=== PATIENT | male | born 1985 | race Caucasian/White ===

== ENCOUNTER 2019-10-03 02:53 | Emergency (ER) | payer OTHER ==
[2019-10-03 04:02] LABS: Basophils # (A) 0.1 k/uL (0-0.2); Basophils % (A) 0 %; Eosinophils # (A) 0.4 k/uL (0-0.7); Eosinophils % (A) 4 %; HCT 43.5 % (39.0-53.0); HGB 15.3 gm/dL (13.0-17.5); Lymphocytes # (A) 1.6 k/uL (1.0-4.8); Lymphocytes % (A) 15 %; MCH 32.7 pg (25.0-35.0); MCHC 35.2 g/dL (31.0-37.0); Mean Platelet Volume 7.2; Monocytes # (A) 0.5 k/uL (0-1.0); Monocytes % (A) 5 %; Neutrophils % (A) 76 %; Platelet Count 187 k/uL (150-450); RBC 4.68 m/uL (4.30-5.90); RDW 13.1 % (11.5-15.5); WBC 10.5 k/uL (3.8-10.6)
[2019-10-03 04:05] LABS: ALT 78 U/L (4-49); AST 67 U/L (17-59); African American GFR (CKD) >90 (>60 ml/min/1.73 sqM); Albumin 4.4 g/dL (3.5-5.0); Alkaline Phosphatase 73 U/L (38-126); Anion Gap 10 mmol/L; Blood Urea Nitrogen 16 mg/dL (9-20); Calcium 9.5 mg/dL (8.4-10.2); Carbon Dioxide 23 mmol/L (22-30); Chloride 102 mmol/L (98-107); Creatine Kinase 136 U/L (55-170); Glucose 106 mg/dL (74-99); Magnesium 1.8 mg/dL (1.6-2.3); Non-African American GFR(CKD) >90 (>60 ml/min/1.73 sqM); Potassium 4.1 mmol/L (3.5-5.1); Sodium 135 mmol/L (137-145); Total Bilirubin 0.3 mg/dL (0.2-1.3); Total Protein 7.3 g/dL (6.3-8.2)
--- NOTE | 2019-10-03 04:14 | ED ---
Extremity Problem HPI - General Chief complaint: Extremity Problem,Nontraumatic Stated complaint: RT foot pain Time Seen by Provider: 10/03/19 03:25 Source: patient Mode of arrival: ambulatory Limitations: no limitations - History of Present Illness Initial comments: Shahzad is a previously healthy 33-year-old male who presents to the ER today for evaluation of bilateral foot pain, today the right worse than the left. Patient reports he's had pain intermittently for the past 2 weeks but has been progressively worsening. He reports at times he has pain in both feet and can't walk so he has to crawl. He states that tonight he is only having pain in his right foot. He does report that his shoes he is wearing are new. He does report that 2 days ago he was feeling well enough to multiple on and walk around. He has not taken anything for the pain he hasn't tried heat ice elevation Tylenol or Motrin. He denies any injury. Denies any rashes or color change. His any calf or ankle pain. Reports the pain is on the top of the arch of his foot radiating around into the arch of his foot. Pain is not worse in the morning and better with walking. - Related Data Allergies Allergy/AdvReac Type Severity Reaction Status Date / Time No Known Allergies Allergy Verified 10/03/19 03:02 Review of Systems ROS Statement: Those systems with pertinent positive or pertinent negative responses have been documented in the HPI. ROS Other: All systems not noted in ROS Statement are negative. Past Medical History Past Medical History: No Reported History History of Any Multi-Drug Resistant Organisms: None Reported Past Surgical History: Orthopedic Surgery Additional Past Surgical History / Comment(s): left knee Past Psychological History: Bipolar Smoking Status: Current every day smoker Past Alcohol Use History: Abuse, Daily, Heavy Past Drug Use History: None Reported General Exam - General Exam Comments Initial Comments: Physical Exam GENERAL: Patient is well-developed and well-nourished. Patient is nontoxic and well-hydrated and is in no distress. HENT: Normocephalic, Atraumatic. EYES: PERRL, EOMI PULMONARY: Unlabored respirations. CARDIOVASCULAR: RRR Warm and well perfused extremities ABDOMEN: Non-distended SKIN: No rashes or bruising : Deferred NEUROLOGIC: Alert and oriented Normal speech MUSCULOSKELETAL: Moving all extremities with no apparent injury Full range of motion of the toes and ankle. Some pain with bearing weight on the foot PSYCHIATRIC: No SI/HI Limitations: no limitations Course Vital Signs 10/03/19 02:58 Temperature 98.3 F Pulse Rate 60 Respiratory 18 Rate Blood Pressure 164/96 O2 Sat by Pulse 99 Oximetry Medical Decision Making - Medical Decision Making The patient was seen and evaluated history was obtained from patient history and physical exam are relatively unremarkable and very high suspicion that the pain in his foot is due to poor arch support is new shoes. X-rays were obtained at the patient's request and revealed no acute findings X-ray results were discussed the patient expresses relief he was treated with Toradol in the hospital. Supportive care was advised he was advised to change his shoes and follow up with a resolute professional if he had persistent pain - Lab Data Result diagrams: 10/03/19 03:41 10/03/19 03:41 Lab Results 10/03/19 10/03/19 Range/Units 03:41 03:41 WBC 10.5 (3.8-10.6) k/uL RBC 4.68 (4.30-5.90) m/uL Hgb 15.3 (13.0-17.5) gm/dL Hct 43.5 (39.0-53.0) % MCV 93.0 (80.0-100.0) fL MCH 32.7 (25.0-35.0) pg MCHC 35.2 (31.0-37.0) g/dL RDW 13.1 (11.5-15.5) % Plt Count 187 (150-450) k/uL Neutrophils % 76 % Lymphocytes % 15 % Monocytes % 5 % Eosinophils % 4 % Basophils % 0 % Neutrophils # 8.0 H (1.3-7.7) k/uL Lymphocytes # 1.6 (1.0-4.8) k/uL Monocytes # 0.5 (0-1.0) k/uL Eosinophils # 0.4 (0-0.7) k/uL Basophils # 0.1 (0-0.2) k/uL Sodium 135 L (137-145) mmol/L Potassium 4.1 (3.5-5.1) mmol/L Chloride 102 (98-107) mmol/L Carbon Dioxide 23 (22-30) mmol/L Anion Gap 10 mmol/L BUN 16 (9-20) mg/dL Creatinine 0.77 (0.66-1.25) mg/dL Est GFR (CKD-EPI)AfAm >90 (>60 ml/min/1.73 sqM) Est GFR (CKD-EPI)NonAf >90 (>60 ml/min/1.73 sqM) Glucose 106 H (74-99) mg/dL Calcium 9.5 (8.4-10.2) mg/dL Magnesium 1.8 (1.6-2.3) mg/dL Total Bilirubin 0.3 (0.2-1.3) mg/dL AST 67 H (17-59) U/L ALT 78 H (4-49) U/L Alkaline Phosphatase 73 (38-126) U/L Creatine Kinase 136 (55-170) U/L Total Protein 7.3 (6.3-8.2) g/dL Albumin 4.4 (3.5-5.0) g/dL Disposition Clinical Impression: Foot pain, bilateral Disposition: HOME SELF-CARE Condition: Stable Instructions (If sedation given, give patient instructions): Metatarsalgia (DC) Additional Instructions: I recommend shoes with more arch support, stop wearing the shoes that he been wearing for the past 2 weeks as I think those are contributing to her foot pain if he had persistent pain follow-up with a resolute professional or orthopedic surgeon Is patient prescribed a controlled substance at d/c from ED?: No Referrals: Nonstaff,Physician [Primary Care Provider] - 1-2 days
--- NOTE | 2019-10-03 04:33 | XR ---
EXAMINATION TYPE: XR foot complete RT DATE OF EXAM: 10/03/2019 COMPARISON: NONE HISTORY: Foot pain TECHNIQUE: 3 views FINDINGS: Metatarsals are intact. I see no fracture nor dislocation. Joint spaces are normal. IMPRESSION: Negative right foot exam.
[2019-10-03] MEDS ORDERED: KETOROLAC 30 MG/ML 1 ML VIAL IVP ONE (04:49)
[2019-10-03 10:35] VITALS: BP 155/94; PULSE 88; RESP 18; TEMP 98.6
== END 2019-10-03 05:57 | disposition home or self-care (01) ==
LOC: EC 02:53
DX: M79.671 Pain in right foot (principal); M79.672 Pain in left foot; F17.200 Nicotine dependence, unspecified, uncomplicated; F10.10 Alcohol abuse, uncomplicated
CPT/HCPCS: 36415; 80053; 82550; 83735; 85025; 73630; 96374; 99283; J1885

== ENCOUNTER 2024-03-11 10:53 | Inpatient (IN) | payer MEDICAID, OTHER ==
--- NOTE | 2024-03-11 11:13 | ED ---
Psych HPI - General Source: patient, police, RN notes reviewed Mode of arrival: ambulatory Limitations: no limitations <Ruben German - Last Filed: 03/11/24 13:27> <Kirill Ewing - Last Filed: 03/11/24 17:17> - General Chief Complaint: Psychiatric Symptoms Stated Complaint: Petition Time Seen by Provider: 03/11/24 11:05 - History of Present Illness Initial Comments: 38-year-old male presents emergency department with police from skilled nursing for psychiatric evaluation. Patient report he stopped taking his medications 2 weeks ago. Patient states that the medications were not helping him. Employee Health Rn states that he has been acutely psychotic, not performing ADLs, having delusional paranoid thoughts. Patient denies being suicidal homicidal (Ruben German) - Related Data Allergies Allergy/AdvReac Type Severity Reaction Status Date / Time No Known Allergies Allergy Verified 03/11/24 17:11 Review of Systems ROS Other: All systems not noted in ROS Statement are negative. <Ruben German - Last Filed: 03/11/24 13:27> ROS Other: All systems not noted in ROS Statement are negative. <Kirill Ewing - Last Filed: 03/11/24 17:17> ROS Statement: Those systems with pertinent positive or pertinent negative responses have been documented in the HPI. Past Medical History Past Medical History: No Reported History History of Any Multi-Drug Resistant Organisms: None Reported Past Surgical History: Orthopedic Surgery Additional Past Surgical History / Comment(s): left knee Past Psychological History: Bipolar Smoking Status: Former smoker Past Alcohol Use History: Abuse, Daily, Heavy Past Drug Use History: None Reported <Ruben German - Last Filed: 03/11/24 13:27> General Exam Limitations: no limitations General appearance: alert, in no apparent distress Head exam: Present: atraumatic, normocephalic, normal inspection Eye exam: Present: normal appearance, PERRL, EOMI. Absent: scleral icterus, conjunctival injection, periorbital swelling ENT exam: Present: normal exam, mucous membranes moist Neck exam: Present: normal inspection. Absent: tenderness, meningismus, lymphadenopathy Respiratory exam: Present: normal lung sounds bilaterally. Absent: respiratory distress, wheezes, rales, rhonchi, stridor Cardiovascular Exam: Present: regular rate, normal rhythm, normal heart sounds. Absent: systolic murmur, diastolic murmur, rubs, gallop, clicks GI/Abdominal exam: Present: soft, normal bowel sounds. Absent: distended, tenderness, guarding, rebound, rigid Neurological exam: Present: alert Psychiatric exam: Present: flat affect <Ruben German - Last Filed: 03/11/24 13:27> Course Vital Signs 03/11/24 11:06 Temperature 98.3 F Pulse Rate 98 Respiratory 18 Rate Blood Pressure 127/92 Medical Decision Making <Ruben German - Last Filed: 03/11/24 13:27> <JobKirill rodriguez - Last Filed: 03/11/24 17:17> - Medical Decision Making Was pt. sent in by a medical professional or institution (, PA, IMMIGRATION SPECIALIST, urgent care, hospital, or snf...) When possible be specific @ -Senior Living Did you speak to anyone other than the patient for history (EMS, parent, family, police, friend...)? What history was obtained from this source @ -No Did you review nursing and triage notes (agree or disagree)? Why? @ -I reviewed and agree with nursing and triage notes Were old charts reviewed (outside hosp., previous admission, EMS record, old EKG, old radiological studies, urgent care reports/EKG's, snf records)? Report findings @ -No old charts were reviewed Differential Diagnosis (chest pain, altered mental status, abdominal pain women, abdominal pain men, vaginal bleeding, weakness, fever, dyspnea, syncope, headache, dizziness, GI bleed, back pain, seizure, CVA, palpatations, mental health, musculoskeletal)? @ -Differential Mental Health Depression, anxiety, bipolar, psychosis, schizophrenia, borderline personality, situational depression, adjustment disorder, behavioral disorder, brain tumor, malingering, substance abuse, encephalopathy, medication reaction, dementia, hypothyroidism, degenerative neurologic disorder, lupus.... This is not meant to be all-inclusive list EKG interpreted by me (3pts min.). @ -None X-rays interpreted by me (1pt min.). @ -None done CT interpreted by me (1pt min.). @ -None done U/S interpreted by me (1pt. min.). @ -None done What testing was considered but not performed or refused? (CT, X-rays, U/S, labs)? Why? @ -None What meds were considered but not given or refused? Why? @ -None Did you discuss the management of the patient with other professionals (professionals i.e. , PA, IMMIGRATION SPECIALIST, lab, RT, psych nurse, clinical social work therapist, pharmacy operations coordinator, teacher, investment officer, family service caseworker)? Give summary @ -EPS evaluated the patient recommended inpatient treatment Was smoking cessation discussed for >3mins.? @ -No Was critical care preformed (if so, how long)? @ -No Were there social determinants of health that impacted care today? How? (Homelessness, low income, unemployed, alcoholism, drug addiction, transportation, low edu. Level, literacy, decrease access to med. care, skilled nursing, rehab)? @ -No Was there de-escalation of care discussed even if they declined (Discuss DNR or withdrawal of care, Hospice)? DNR status @ -No What co-morbidities impacted this encounter? (DM, HTN, Smoking, COPD, CAD, Cancer, CVA, ARF, Chemo, Hep., AIDS, mental health diagnosis, sleep apnea, morbid obesity)? @ -None Was patient admitted / discharged? Hospital course, mention meds given and route, prescriptions, significant lab abnormalities, going to OR and other pertinent info. @ -Admit to 3 W. Undiagnosed new problem with uncertain prognosis? @ -No Drug Therapy requiring intensive monitoring for toxicity (Heparin, Nitro, Insulin, Cardizem)? @ -No Were any procedures done? @ -No Diagnosis/symptom? @Bipolar disorder, acute psychosis Acute, or Chronic, or Acute on Chronic? @ -Acute Uncomplicated (without systemic symptoms) or Complicated (systemic symptoms)? @ -Complicated Side effects of treatment? @ -No Exacerbation, Progression, or Severe Exacerbation? @ -No Poses a threat to life or bodily function? How? (Chest pain, USA, DC, pneumonia, PE, COPD, DKA, ARF, appy, cholecystitis, CVA, Diverticulitis, Homicidal, Suicidal, threat to staff... and all critical care pts) @ -No (Ruben German) I did see this patient and completed the clinical certificate. Patient did request that I read the legal disclaimer twice. (Kirill Ewing) - Lab Data Lab Results 03/11/24 Range/Units 11:36 SARS-CoV-2 (PCR) Not Detected (Not Detectd) Disposition Time of Disposition: 13:27 <Ruben German - Last Filed: 03/11/24 13:27> <Kirill Ewing - Last Filed: 03/11/24 17:17> Clinical Impression: Acute psychosis, Bipolar disorder Disposition: TRANSFER TO PSYCH HOSP/UNIT Condition: Fair Referrals: None,Stated [Primary Care Provider] - 1-2 days
[2024-03-11 17:44] LABS: Amphetamine Screen,Urine Not Detected (NotDetected); Barbiturate Screen,Urine Not Detected (NotDetected); Benzodiazepines Screen,Urine Not Detected (NotDetected); Cocaine Screen,Urine Not Detected (NotDetected); Methadone Screen, Urine Not Detected (NotDetected); Opiate Screen,Urine Not Detected (NotDetected); Oxycodone Screen, Urine Not Detected (NotDetected); Phencyclidine Screen,Urine Not Detected (NotDetected); Tricyclic Antidepressant,Urine Not Detected (NotDetected); Urn Cannabinoid Scrn Not Detected (NotDetected)
[2024-03-11] MEDS ORDERED: MAGNESIUM HYDROXIDE 2,400 MG/30 ML CUP PO PRN (17:59)
[2024-03-11] MEDS ORDERED: ACETAMINOPHEN TAB 325 MG TAB PO PRN (17:59)
[2024-03-11] MEDS ORDERED: MAG HYDROX/AL HYDROX/SIMETH 355 ML BOTTLE PO PRN (17:59)
[2024-03-11] MEDS: SERTRALINE 50 MG TAB PO SCH (18:53)
[2024-03-11] MEDS: risperiDONE 2 MG TAB PO SCH (21:25)
--- NOTE | 2024-03-12 03:07 | P.PN ---
Progress Note - Text Progress Note Date: 03/12/24 Attempted to see the patient in the MHU on 03/11 at 2200. Patient refused to be seen or be evaluated.
[2024-03-12] MEDS: NICOTINE 21MG/24HR PATCH TRANSDERM SCH (09:52)
[2024-03-12 10:06] LABS: Appearance,Urine Clear (Clear); Bilirubin,Urine 1+ (Negative); Blood,Urine Negative (Negative); Calcium Oxalate Crystals,Urine Rare /hpf; Color,Urine Yellow; Glucose,Urine (UA) Negative (Negative); Ketones,Urine 3+ (Negative); Leukocyte Esterase,Urine Negative (Negative); Mucus,Urine Many /hpf; Nitrite,Urine Negative (Negative); PH, Urine 5.5 (5.0-8.0); Protein,Urine 1+ (Negative); Specific Gravity,Urine 1.033 (1.001-1.035); WBC,Urine 1 /hpf (0-5)
--- NOTE | 2024-03-12 13:13 | P.HP ---
Psychiatric H&P - . H&P Date: 03/12/24 History & Physical: Allergies Allergy/AdvReac Type Severity Reaction Status Date / Time No Known Allergies Allergy Verified 03/11/24 17:11 Vital Signs Temp 97.6 F 03/11/24 18:30 Pulse 81 03/11/24 18:30 Resp 18 03/11/24 18:30 BP 108/71 03/11/24 18:30 Pulse Ox 98 03/11/24 18:30 FiO2 Intake & Output 03/11/24 03/12/24 03/12/24 18:59 06:59 18:59 Weight 81.788 kg Laboratory Last Values Urine Color Yellow 03/11/24 11:36 Urine Appearance Clear (Clear) 03/11/24 11:36 Urine pH 5.5 (5.0-8.0) 03/11/24 11:36 Ur Specific [place] 1.033 (1.001-1.035) 03/11/24 11:36 Urine Protein 1+ (Negative) H 03/11/24 11:36 Urine Glucose (UA) Negative (Negative) 03/11/24 11:36 Urine Ketones 3+ (Negative) H 03/11/24 11:36 Urine Blood Negative (Negative) 03/11/24 11:36 Urine Nitrite Negative (Negative) 03/11/24 11:36 Urine Bilirubin 1+ (Negative) H 03/11/24 11:36 Urine Urobilinogen 3.0 mg/dL (<2.0) 03/11/24 11:36 Ur Leukocyte Esterase Negative (Negative) 03/11/24 11:36 Urine WBC 1 /hpf (0-5) 03/11/24 11:36 Calcium Oxalate Crystal Rare /hpf (None) H 03/11/24 11:36 Urine Mucus Many /hpf (None) H 03/11/24 11:36 Urine Opiates Screen Not Detected (NotDetected) 03/11/24 11:36 Ur Oxycodone Screen Not Detected (NotDetected) 03/11/24 11:36 Urine Methadone Screen Not Detected (NotDetected) 03/11/24 11:36 Ur Barbiturates Screen Not Detected (NotDetected) 03/11/24 11:36 U Tricyclic Antidepress Not Detected (NotDetected) 03/11/24 11:36 Ur Phencyclidine Scrn Not Detected (NotDetected) 03/11/24 11:36 Ur Amphetamines Screen Not Detected (NotDetected) 03/11/24 11:36 U Methamphetamines Scrn Not Detected (NotDetected) 03/11/24 11:36 U Benzodiazepines Scrn Not Detected (NotDetected) 03/11/24 11:36 Urine Cocaine Screen Not Detected (NotDetected) 03/11/24 11:36 U Marijuana (THC) Screen Not Detected (NotDetected) 03/11/24 11:36 SARS-CoV-2 (PCR) Not Detected (Not Detectd) 03/11/24 11:36 03/12/24 11:58 IDENTIFYING DATA: Patient is a 38-year-old male, currently coming from retirement, he is single he has no kids he is unemployed HPI: Patient presented to the hospital coming from the local retirement. Patient came on a petition is stated the patient has been acting bizarre and not taking care of his ADLs, acutely psychotic. Patient was admitted involuntarily to the mental health unit. He appeared to be disheveled in appearance, he was fairly irritable with typewriter operator automatic, focused on discharge. He had very poor insight poor judgment. Poor decision making. He states that he been off his medications for quite some time. Apparently stopped taking his medications about 2 weeks ago. He was responding to internal stimuli, acting bizarre in his room. He was fairly illogical in thought process. He states that he came to the hospital because of drinking too much. Claims that has been drinking "beer" however did not state how much or when. He is not agreeable to take medications at this [facility]. Patient denies any suicidal or homicidal ideations intent or plan. At this time patient denies any auditory or visual hallucinations. Patient denies any flight of ideas racing thoughts and increased in goal directed behavior. Patient admits to using no recreational drugs except for alcohol as noted above Patient was fairly uncooperative, poor historian, gave limited further information on social history and past psychiatric history. PAST PSYCHIATRIC HISTORY: Patient has a history of psychosis. Patient was previously on Risperdal, previously following the nurse practitioner at [facility] how ever stopped going and case closed in 2022. Patient denies any previous psychiatric hospitalizations. Patient denies any psychiatric outpatient follow- up. Patient denies any history of suicide attempts in the past. Past Medical History: No Reported History History of Any Multi-Drug Resistant Organisms: None Reported Past Surgical History: Orthopedic Surgery Additional Past Surgical History / Comment(s): left knee Past Psychological History: Bipolar Smoking Status: Former smoker Past Alcohol Use History: Abuse, Daily, Heavy Past Drug Use History: None Reported ALLERGIES: as per EMR CHEMICAL DEPENDENCY HISTORY: as per HPI FAMILY PSYCHIATRIC/SUBSTANCE USE HISTORY: Unable to gather SOCIAL HISTORY: Patient is coming from the local retirement, unable to cooperate with further social history MENTAL STATUS EXAM: General Appearance: Patient appears to be tall, thin, disheveled hair in appearance, stated age is alert, uncooperative, bizarre. Patient appears to have poor hygiene and grooming. Behavior: Patient is seated without any agitated behavior. Responding to internal stimuli, irritable Speech: Patient's speech is fluent and nonpressured. [place] Mood/Affect: Patient reports their mood is "okay", affect is congruent and constricted. Suicidality/Homicidality: Patient denies having any homicidal ideation intent or plan. Denies any suicidal ideations intent or plan Perceptions: Patient denies any visual hallucinations and denies any auditory hallucinations Though content/process: Bizarre content, focused on discharge, minimizing need for treatment. Memory and concentration: AOX3, grossly intact for the purposes of this session. Can spell "WORLD" backwards Judgment and insight: Poor STRENGTHS/WEAKNESSES: strength is that patient is resilient. Weakness is that patient has poor judgment and is impulsive INTELLECT: Average IMPRESSIONS: Psychosis unspecified Alcohol use disorder Legal problems Nonadherence to medication regimen PLAN: -Patient is admitted under involuntary status to MHU for stabilization of psychiatric symptoms and safety. Patient has not signed adult voluntary form and medication consent and is placed in patient's chart. A second certification was completed and along with petition will be filed for court. -Medications : Risperdal 2 mg p.o. twice daily for psychosis, trazodone 50 mg nightly as needed for sleep, Zoloft 50 mg daily for mood/anxiety -Ativan and Haldol PRN for agitation/aggression -CIWA protocol with Ativan PRN for ETOH withdrawal. -Patient was counselled on substance abuse and desired to cut back on use -Patient was informed of the risks, benefits and side effects of the medication and patient verbally consented to taking the medications. Patient signed med consent form and was placed in chart. -Internal Medicine consult to perform medical evaluation and physical. -NRT -not needed as patient does not smoke -SW on board for discharge planning. Encourage patient to participate in groups to work on coping skills. Will await deferral and court date. 03/12/24 13:08 03/12/24 13:13
[2024-03-12] MEDS: LORazepam 1 MG TAB PO PRN (14:47)
[2024-03-12] MEDS: traZODone HCL 50 MG TAB PO SCH (21:54)
--- NOTE | 2024-03-13 10:29 | P.PN ---
Progress Note - Text Progress Note Date: 03/13/24 Interval History: Patient was seen today laying in his bed, he was agreeable to speak with typewriter assembly and parts inspector briefly. He continues to be fairly nonchalant, states that he slept fairly last night. Fairly concrete in his answers. Continues to have very poor insight and judgment. Claims that he has not heard about the health care attorney when they would be able to come and talk with him. Continues to state that he does not need medications has been refusing them. Denies any depression or anxiety. Claims that he has been eating fairly. He asked where the "snack room" is. Continues to have a disheveled appearance. Denying any auditory or visual hallucinations, denying any suicidal homicidal ideations intent or plan. MENTAL STATUS EXAM: General Appearance: Patient appears to be tall, thin, disheveled hair in appearance, stated age is alert, uncooperative, Patient appears to have poor hygiene and grooming. Behavior: Patient is seated without any agitated behavior. Responding to internal stimuli Speech: Patient's speech is fluent and nonpressured. [place] Mood/Affect: Patient reports their mood is "ok", affect is congruent and constricted. Suicidality/Homicidality: Patient denies having any homicidal ideation intent or plan. Denies any suicidal ideations intent or plan Perceptions: Patient denies any visual hallucinations and denies any auditory hallucinations Though content/process: Bizarre content, fminimizing need for treatment. concrete. Memory and concentration: AOX3, grossly intact for the purposes of this session. Judgment and insight: Poor IMPRESSIONS: Psychosis unspecified Alcohol use disorder Legal problems Nonadherence to medication regimen PLAN: -Patient is admitted under involuntary status to MHU for stabilization of psychiatric symptoms and safety. Patient has not signed adult voluntary form and medication consent and is placed in patient's chart. A second certification was completed and along with petition will be filed for court. -Medications : Risperdal 2 mg p.o. twice daily for psychosis, trazodone 50 mg nightly as needed for sleep, Zoloft 50 mg daily for mood/anxiety. patient is refusing meds. -Ativan and Haldol PRN for agitation/aggression -CIWA protocol with Ativan PRN for ETOH withdrawal. -NRT -not needed as patient does not smoke -SW on board for discharge planning. Encourage patient to participate in groups to work on coping skills. Will await deferral and court date.
[2024-03-13] MEDS: HALOPERIDOL LACTATE 5 MG/ML 1 ML VIAL IM PRN (21:42)
[2024-03-13] MEDS: LORazepam 2 MG/ML INJ IM PRN (21:42)
[2024-03-14] MEDS: risperiDONE 2 MG TAB PO STA (10:23)
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
[2024-03-14] MEDS: risperiDONE 1 MG TAB PO SCH (22:08)
--- NOTE | 2024-03-15 11:52 | P.PN ---
Progress Note - Text Progress Note Date: 03/15/24 Interval history: Patient was seen wandering the hallways and was directable and agreeable to s peak with typewriter tester. He continues on a security one-to-one due to history of aggression. Patient continues to be unpredictable, pacing the hallway, he was not cooperative today during interview. Only answered some questions. Denies any problems with his medications at this time. He became upset when typewriter tester offered alternatives to his medications. States that he is eating fairly. At this time patient denies any suicidal or homicidal ideations intent or plan. Denies any Auditory or visual hallucinations. Patient denies any side effects from the medications and has been compliant with meds. Mental status exam: General Appearance: Patient appears to be tall, disheveled appearance, stated age is alert, directable, and cooperative. [place] grooming improving mildly Behavior: No agitated behavior. Patient is calm and directable fairly withdrawn Speech: Patient's speech is fluent and nonpressured. [place] Mood/Affect: Mood is improving mildly, affect is congruent and constricted. Suicidality/Homicidality: Patient denies having any suicidal or homicidal ideation intent or plan. Perceptions: Patient denies any auditory or visual hallucinations. Though content/process: There is no evidence of any delusional thought content and thought process is linear and goal-directed. Poverty of content Memory and concentration: AOX3, grossly intact for the purposes of this session Judgment and insight: Phonically poor, improving mildly Assessment/Plan: Continue with current diagnosis. Patient continues to meet criteria for inpatient psychiatric admission for symptom stabilization and safety. Patient will be maintained on current psychotropic medication regimen. Monitor for medication compliance and for any psychotropic medication side effects. Will continue to monitor ongoing response to treatment. Encouraged participation in milieu.
[2024-03-15] MEDS: haloperidoL 5 MG TAB PO PRN (12:52)
--- NOTE | 2024-03-16 11:30 | P.PN ---
Progress Note - Text Progress Note Date: 03/16/24 Interval history: Patient was seen in his room today. He continues on a security one-to-one due to history of aggression. Patient continues to be unpredictable, bizarre, disheveled appearance. Patient was hiding in the corner of his room, had his shirt off. He answered only some questions briefly. He admitted to taking medications. Was fairly focused on getting Coke and coffee. Asked about lunchtime. Continues to have illogical thought process, disorganized behaviors and thoughts. Continues to be unpredictable, remains on a one-to-one sitter. At this time patient denies any suicidal or homicidal ideations intent or plan. Denies any Auditory or visual hallucinations. Patient has been selectively taking some medications. Mental status exam: General Appearance: Patient appears to be tall, disheveled appearance, stated age is alert, as are, somewhat cooperative. Poor grooming improving mildly Behavior: No agitated behavior. Patient is calm and directable fairly withdrawn, bizarre and unpredictable Speech: Patient's speech is fluent and nonpressured. [place] Mood/Affect: Mood is improving mildly, affect is congruent and constricted. Suicidality/Homicidality: Patient denies having any suicidal or homicidal ideation intent or plan. Perceptions: Patient denies any auditory or visual hallucinations. Though content/process: There is no evidence of any delusional thought content. Disorganized thoughts, illogical. Memory and concentration: AOX3, grossly intact for the purposes of this session Judgment and insight: Chronically poor, improving mildly Assessment/Plan: Continue with current diagnosis. Patient continues to meet criteria for inpatient psychiatric admission for symptom stabilization and safety. Patient will be maintained on current psychotropic medication regimen, with the exception of changing Risperdal p.o. to Prolixin due to ineffectivene ss. will need to transition onto QUINONEZ. Monitor for medication compliance and for any psychotropic medication side effects. Will continue to monitor ongoing response to treatment. Encouraged participation in milieu.
--- NOTE | 2024-03-17 12:34 | P.PN ---
Progress Note - Text Progress Note Date: 03/17/24 Interval History: Patient was seen today in his room. He was also seen pacing the hallway in the back hallway. He continues on a one-to-one security sitter. Continues to have a disheveled appearance, was initially reluctant to speak to service writer advisor. He asks for service writer advisor's full name. He believes that service writer advisor could be "an impostor". He appeared to be somewhat irritable with service writer advisor today argumentative. Continues to be fairly bizarre illogical at times. Responding to internal stimuli. Fairly concrete in his answers continues to have disorganized thoughts and speech. Continues to have very poor insight and judgment. Denies any depression or anxiety. Claims that he has been eating fairly. Denying any auditory or visual hallucinations, denying any suicidal homicidal ideations intent or plan. MENTAL STATUS EXAM: General Appearance: Patient appears to be tall, thin, disheveled hair in miller earance, stated age is alert, uncooperative, Patient appears to have mildly improving hygiene and grooming. Behavior: Patient is seated without any agitated behavior. Responding to internal stimuli, somewhat irritable Speech: Patient's speech is fluent and nonpressured. [place] Mood/Affect: Patient reports their mood is "ok", affect is congruent and constricted. Suicidality/Homicidality: Patient denies having any homicidal ideation intent or plan. Denies any suicidal ideations intent or plan Perceptions: Patient denies any visual hallucinations and denies any auditory hallucinations Though content/process: Bizarre content, disorganized thoughts. concrete. Paranoid towards service writer advisor Memory and concentration: AOX3, grossly intact for the purposes of this session. Judgment and insight: Poor/impulsive IMPRESSIONS: Psychosis unspecified Alcohol use disorder Legal problems Nonadherence to medication regimen PLAN: -Patient is admitted under involuntary status to [facility] for stabilization of psychiatric symptoms and safety. Patient has not signed adult voluntary form and medication consent and is placed in patient's chart. A second certification was completed and along with petition will be filed for court. -Medications : Increase Prolixin p.o. 7.5 mg twice daily for psychosis. Depakote 500 mg nightly for mood stabilization/aggression. Trazodone 50 mg nightly as needed for sleep, Zoloft 50 mg daily for mood/anxiety. -Ativan and Haldol PRN for agitation/aggression -NRT -not needed as patient does not smoke -SW on board for discharge planning. Encourage patient to participate in groups to work on coping skills. Patient did not defer with his business change manager, awaiting hearing date. he is a senior living hold.
[2024-03-17] MEDS: DIVALPROEX ER 500 MG TAB.ER.24H PO SCH (20:53)
--- NOTE | 2024-03-18 11:23 | P.PN ---
Progress Note - Text Progress Note Date: 03/18/24 Interval History: Patient was seen today in his room. Patient continues to be on a one-to-one s ecurity sitter. He continues to be unpredictable, agitated at times pacing in the hallways and sometimes running according to staff. Patient stopped taking his medications today, refused the Prolixin. Senior Statistician attempted to speak with patient in his room, patient covered himself with blankets. Senior Statistician attempted several times to engage with patient however he did not respond did not answer any questions. MENTAL STATUS EXAM: General Appearance: Patient appears to be tall, thin, disheveled hair in appearance, stated age is alert, uncooperative, laying in bed. Behavior: Patient is laying in bed, sheets are covering him. Uncooperative Speech: Unable to assess Mood/Affect: Unable to assess Suicidality/Homicidality: Unable to assess Perceptions: Unable to assess Though content/process: Unable to assess Memory and concentration: Unable to assess Judgment and insight: Unable to assess IMPRESSIONS: Psychosis unspecified Alcohol use disorder Legal problems Nonadherence to medication regimen PLAN: -Patient is admitted under involuntary status to [facility] for stabilization of psychiatric symptoms and safety. Patient has not signed adult voluntary form and medication consent and is placed in patient's chart. -Medications : Prolixin p.o. 7.5 mg bid for psychosis. Depakote 500 mg nightly for mood stabilization/aggression. Trazodone 50 mg nightly as needed for sleep, Zoloft 50 mg daily for mood/anxiety. refusing PO meds at this time. -remains on a security 1:1 sitter due to impulsivity, aggression and potential violence. -Benadryl, Ativan and Haldol PRN for agitation/aggression -NRT -not needed as patient does not smoke -SW on board for discharge planning. Encourage patient to participate in groups to work on coping skills. Patient did not defer with his patent prosecution attorney. Court hearing date is scheduled for 03/28.
--- NOTE | 2024-03-19 09:11 | P.PN ---
Subjective Progress Note Date: 03/19/24 Principal diagnosis: psychosis NOS nterval History: Patient was seen today in his room. Patient continues to be on a one-to-one security sitter. he was very pleasant with me but is unpredictable. According to the nursing staff he can get agitated at times pacing in the hallways and sometimes running. Patientrefused to take his medications today, refused the Prolixin. He did say that in the past risperidone has worked well for him at 4 mg but no he didn't want it at this time because he thinks he is doing fine. Hand Etcher talked with the patient in his room he sat up had reasonable eye contact but it felt like he could be triggered easily. He denied any suicidality or h omicidality. MENTAL STATUS EXAM: General Appearance: Patient appears to be tall, thin, disheveled hair in appearance, stated age is alert. Behavior: Patient is laying in bed, sheets are covering him. but then he pulled the sheet off of his head and sat up and talk to me Speech: slightly pressured Mood/Affect: edgy and irritable looking for things to disagree with in our conversation Suicidality/Homicidality: denied Perceptions:did not seem to be responding to voices Though content/process: fairly logical Memory and concentration:patient inattention and stayed on the topic Judgmen and insight: hard to assess He noted today was Debby and that was 03/19/2024. Mostly he told me that my questions were relevant and he didn't want to answer them. He also didn't want to discuss the reason that he was fasting and did not want to eat breakfast. diagnoses: Psychosis unspecified Alcohol use disorder Legal problems Nonadherence to medication regimen PLAN: I think he still needs to be on one-on-one due to the unpredictability. The nursing staff says he can be quite polite but then shifts suddenly -Patient is admitted under involuntary status to [facility]HU for stabilization of psychiatric symptoms and safety. Patient has not signed adult voluntary form and medication consent and is placed in patient's chart. -Medications : Prolixin p.o. 7.5 mg bid for psychosis. currently refusing. Depa kote 500 mg nightly for mood stabilization/aggression. Trazodone 50 mg nightly as needed for sleep, Zoloft 50 mg daily for mood/anxiety. refusing PO meds at this time. -remains on a security 1:1 sitter due to impulsivity, aggression and potential violence. -Benadryl, Ativan and Haldol PRN for agitation/aggression -NRT -not needed as patient does not smoke -SW on board for discharge planning. Encourage patient to participate in groups to work on coping skills. Patient did not defer with his divorce attorney. Court hearing date is scheduled for 03/28. Objective - Vital Signs Vital signs: Vital Signs Temp 97.9 F 03/18/24 06:47 Pulse 102 H 03/18/24 06:47 Resp 16 03/18/24 06:47 BP 104/73 03/18/24 06:47 Pulse Ox 96 03/18/24 06:47 FiO2
[2024-03-19] MEDS: diphenhydrAMINE 50 MG/ML 1 ML VIAL IM PRN (17:02)
[2024-03-19] MEDS: LORazepam 2 MG/ML INJ IM PRN (17:03)
--- NOTE | 2024-03-19 17:50 | P.MHFACE ---
Face to Face Restrain/Seclus - Evaluation Patient's Immediate Situation: Endangers self safety, Endangers staff safety Patient's Reaction to the Intervention: Uncooperative, Angry, Hostile, Belligerent, Aggressive, Combative, Restless Patient's Medical & Behavioral Condition: Awake, Alert, Anxious, Agitated Need to Continue or Terminate Restraint or Seclusion: Continue Face to Face Eval of Restraint Date: 03/19/24 Face to Face Eval of Restraint Time: 16:45
[2024-03-21 14:08] VITALS: BMI 24.2
[2024-03-21] MEDS: IBUPROFEN 600 MG TAB PO PRN (14:16)
--- NOTE | 2024-03-21 19:01 | P.PN ---
Progress Note - Text Progress Note Date: 03/20/24 Progress Note: Interval History: I attempted to evaluate patient on 03/20/24 via HIPAA compliant telehealth with staff present. Patient continues to be on a one-to-one security sitter. He was found isolating to his room, laying in bed with his shirt off and staring at the ceiling. He refuses to make eye contact or engage in the assessment. His only response is "no comment". Assessment was terminated early to avoid escalating patient. He had been noncompliant with his medications for several days and yesterday early evening he required seclusion and restraints for severe agitation and aggressive behaviors, and received PRN Haldol 5 mg IM x 1, Ativan 2 mg IM x 1 and Benadryl 25 mg IM x1. MENTAL STATUS EXAM: General Appearance: Patient appears to be average build, disheveled hair in appearance, stated age. Behavior: Patient is laying in bed with shirt off, starting at the ceiling. Poor eye contact. Refuses to engage in assessment. Speech: [place] Mood/Affect: Irritable/irritable Suicidality/Homicidality: Not able to fully assess due to lack of cooperation Perceptions: Not able to fully assess due to lack of cooperation, but does not appear to be actively responding to internal stimuli. Though content/process: Not able to fully assess due to lack of cooperation. Memory and concentration: Not able to fully assess due to lack of cooperation. Judgment and insight: Appears to be poor, but not able to fully assess due to lack of cooperation. ASSESSMENT/PLAN: Continue current diagnosis. Continue one-on-one sitter to maintain safety due to the unpredictability. -Patient is admitted under involuntary status to [facility]HU for stabilization of psychiatric symptoms and safety. Patient has not signed adult voluntary form and medication consent. -Medications: Continue to encourage compliance with medications. He had been refusing his medications for the past few days but took them this morning. Continue Prolixin 7.5 mg bid for psychosis, Depakote 500 mg nightly for mood stabilization/aggression, Trazodone 50 mg nightly as needed for sleep, Zoloft 50 mg daily for mood/anxiety. -Benadryl, Ativan and Haldol PRN for agitation/aggression -NRT -not needed as patient does not smoke -SW on board for discharge planning. Encourage patient to participate in groups to work on coping skills. Patient did not defer with his employee benefits attorney. Court hearing date is scheduled for 03/28/2024.
--- NOTE | 2024-03-21 19:22 | P.PN ---
Progress Note - Text Progress Note Date: 03/21/24 Progress Note: Interval History: I evaluated patient on 03/21/24 via HIPAA compliant telehealth with staff present. Patient continues to be on a one-to-one security sitter. He was found in the hallway and is willing to talk to this provider today. His insight into his mental illness continues to be poor. He is focused on discharge to his dad's house, "or [place] or [place]". He continues to be irritable and somewhat confrontational with staff as well as myself during the assessment. He denies any SI/HI, intent or plan, so far today, but states if he becomes very frightened he would have to defend himself but doesn't want to kill anybody. He is refusing the long-acting injectable of Prolixin when discussing this with him today. He states "I don't want to take any medications. I'm only taking the medications you guys are telling me to so I can get out of this facility." He has been compliant with medications so far today and denies any current side effects. MENTAL STATUS EXAM: General Appearance: Patient appears to be tall, thin, disheveled hair in appearance, stated age. Behavior: Patient is walking in the hallway and agrees to talk with this provider in the lounge. Staff and his 1:1 are present to maintain safety and patient continuously asks them why they are there. Speech: Fluent and non-pressured Mood/Affect: irritable/irritable Suicidality/Homicidality: Denies Perceptions: Denies auditory or visual hallucinations Though content/process: Argumentative, antagonistic/some paranoid ideations Memory and concentration: Alert and oriented to person, place, month/year Judgment and insight: Very poor. ASSESSMENT/PLAN: - Continue current diagnosis. - Continue 1:1 observation to maintain safety. -Patient is admitted under involuntary status to [facility]HU for stabilization of psychiatric symptoms and safety. Patient has not signed adult voluntary form and medication consent. -Medications: Increase Prolixin 7.5 mg po bid to 10 mg po BID for psychosis, Depakote 500 mg nightly for mood stabilization/aggression, Trazodone 50 mg nightly as needed for sleep, Zoloft 50 mg daily for mood/anxiety. -Benadryl, Ativan and Haldol PRN for agitation/aggression -NRT -not needed as patient does not smoke -SW on board for discharge planning. Encourage patient to participate in groups to work on coping skills. Patient did not defer with his shoeblack. Court hearing date is scheduled for 03/28/24.
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
--- NOTE | 2024-03-23 10:25 | P.PN ---
Subjective Progress Note Date: 03/23/24 Principal diagnosis: psychosis NOS He was pacing in the hallway came to talk to him and he talked me as he walked up and down the nathan. I tried to engage him in 2 thinking through what would have to occur for him to be off of restraints in do well after discharge but he couldn'tcome up with anything Patient continues to be on a one-to-one security sitter due to unpredictable aggression. He became convinced that other patients were endangering him and he attacked them which endangered their progress.. He was willing to talk to this provider today. His insight into his mental illness continues to be poor. He is focused on discharge to his dad's house, "or [place] or [place]". he says he is going to play music work on his hobbies and take care of his dad. He continues to be irritable and somewhat confrontational with staff but was calm with me during the assessment. He denies any SI/HI, intent or plan, so far today, but states if he becomes very frightened he would have to defend himself but doesn't want to kill anybody. He is refusing the long-acting injectable of Prolixin when discussing this with him today. He states "I don't want to take any medications. I'm only taking the medications you guys are telling me to so I can get out of this facility." MENTAL STATUS EXAM: General Appearance: Patient appears to be tall, thin, disheveled hair in appearance, stated age. his hair was disheveled he is lying in his room says that he is bored.appetite seems to be good there is a bag full of empty potato chip bag so in his room Behavior: cooperative he asked my name and talk to me well Speech: Fluent and non-pressured Mood/Affect: irritable/irritable Suicidality/Homicidality: Denies Perceptions: Denies auditory or visual hallucinations Though content/process: Argumentative, antagonistic/some paranoid ideations Memory and concentration: Alert and oriented to person, place, month/year Judgment and insight: Very poor. ASSESSMENT/PLAN: - Continue 1:1 observation to maintain safety. -Patient is admitted under involuntary status to [facility] for stabilization of psychiatric symptoms and safety. Patient has not signed adult voluntary form and medication consent. -Medications: Increase Prolixin 7.5 mg po bid to 10 mg po BID for psychosis, Depakote 500 mg nightly for mood stabilization/aggression, Trazodone 50 mg nightly as needed for sleep, Zoloft 50 mg daily for mood/anxiety. -Benadryl, Ativan and Haldol PRN for agitation/aggression -NRT -not needed as patient does not smoke -SW on board for discharge planning. Encourage patient to participate in groups to work on coping skills. Patient did not defer with his litigation attorney associate. Court hearing date is scheduled for 03/28/24. Objective - Vital Signs Vital signs: Vital Signs Temp 98.7 F 03/22/24 14:00 Pulse 80 03/22/24 14:00 Resp 17 03/19/24 16:45 BP 97/65 03/22/24 14:00 Pulse Ox 96 03/22/24 14:00 FiO2
--- NOTE | 2024-03-24 13:02 | P.PN ---
Progress Note - Text Interval History: Patient was seen pacing in the hallway and was agreeable to answer questions. He proceeded to answer all questions with shaking his head yes or no, occasionally shrugging his shoulders. He endorsed sleeping well and eating. Though nursing shared he has not eaten so far today, only wanting soda and coffee. Mr. Moran would not state how he's feeling today. He made brief eye contact when asked if there was anything he wanted to say, then proceeded to resume pacing up and down the nathan with his head looking down. At this time patient denies any suicidal or homicidal ideations, shaking his head "no" when asked. Patient shrugged his shoulders when asked about auditory and visual hallucinations. Patient denies any side effects from the medications and has been compliant with meds. He remains on 1:1 with security due to risk for assault. No acute events overnight. Mental Status Exam: General Appearance: Patient appears to be stated age is alert and minimally cooperative. Behavior: Patient is pacing the hallway continuously though does not appear agitated, only restless. Speech: Patient did not speak during the encounter. Mood/Affect: Unable to assess mood. Affect is congruent and constricted. Intense. Suicidality/Homicidality: Patient denies having any suicidal or homicidal ideation. Perceptions: No obvious response to internal stimuli. Though content/process: Thought process is goal-directed, though this is only assessed through patient's non-verbal answers to questions. Memory and concentration: Oriented to person. Unable to assess further due to patient not speaking. Judgment and insight: Poor ASSESSMENT: Psychosis unspecified Alcohol use disorder Legal problems Nonadherence to medication regimen PLAN: -Patient continues to meet criteria for inpatient psychiatric admission for symptom stabilization and safety. Patient has not signed adult voluntary form or medication consent. Has not completed admission paperwork due to ongoing refusal. Currently awaiting court date on 03/28/24. -Medications: - Continue Prolixin 10 mg BID for psychotic symptoms - Continue Divalproex 500 mg nightly for mood stabilization/irritability - Continue sertraline 50 mg daily for mood - Continue Trazodone 50 mg PRN insomnia -When necessary Ativan and Haldol for agitation/aggression. -NRT -nicotine patch -SW on board for discharge planning. Encouraged the patient to participate in milieu. Currently awaiting deferral with senior backup administrator and court date.
--- NOTE | 2024-03-25 10:13 | P.PN ---
Progress Note - Text Progress Note Date: 03/25/24 Interval History: Patient was seen laying in his bed today. He was seen pacing the nathan earlier. He is still on a security one-to-one sitter, also remains in the back hallway. He reportedly was in restraints for aggressive behavior a few days ago. Patient has been on and off taking his medications. He did take him this morning. He did agree to speak to magazine writer briefly. He answered minimal questions. He continues to be fairly concrete, very poor insight and judgment. Denies any issues with his medications at this time no side effects. Denies any auditory or visual hallucinations. At this time patient denies any suicidal or homicidal ideations Mental Status Exam: General Appearance: Patient appears to be stated age is alert and minimally cooperative. Behavior: Patient is pacing the hallway at times, laying in his bed, though does not appear agitated, only restless. Speech: Patient was fairly concrete today. Mood/Affect: Aims that his mood is "fine" affect is congruent and constricted. Suicidality/Homicidality: Patient denies having any suicidal or homicidal ideation. Perceptions: No obvious response to internal stimuli. Though content/process: Thought process is increased, paucity of thought. Memory and concentration: Oriented to person. Unable to assess further. Judgment and insight: Poor ASSESSMENT: Psychosis unspecified Alcohol use disorder Legal problems Nonadherence to medication regimen PLAN: -Patient continues to meet criteria for inpatient psychiatric admission for symptom stabilization and safety. Patient has not signed adult voluntary form or medication consent. -Medications: -Increase Prolixin 10 mg BID + 5mg at 1400hr for psychotic symptoms, plan will be to transition patient onto QUINONEZ. - change Divalproex 1000 mg nightly for mood stabilization/aggression - Continue sertraline 50 mg daily for mood - increase Trazodone 100 mg qhs insomnia -When necessary Ativan and Haldol for agitation/aggression. -NRT -nicotine patch -SW on board for discharge planning. Encouraged the patient to participate in milieu. did not defer with his civil attorney, currently awaiting court date scheduled for 03/28.
[2024-03-25] MEDS: BENZTROPINE MESYLATE 1 MG TAB PO SCH (14:07)
[2024-03-25] MEDS: DIVALPROEX ER 500 MG TAB.ER.24H PO SCH (21:25)
[2024-03-25] MEDS: traZODone HCL 100 MG TAB PO SCH (21:26)
--- NOTE | 2024-03-26 09:57 | P.PN ---
Progress Note - Text Progress Note Date: 03/26/24 Interval History: Patient was seen laying in his bed today. Patient apparently has been more co operative today according to nursing report. Patient remains on a security one-to-one sitter, also remains in the back hallway. Patient has been taking his medications, he also claims that he has been showering every night. He was a bit more polite today with movie writer, attempting to answer questions. He continues to be fairly concrete, very poor insight and judgment, improving mildly. Denies any issues with his medications at this time no side effects. Denies any auditory or visual hallucinations. At this time patient denies any suicidal or homicidal ideations Mental Status Exam: General Appearance: Patient appears to be stated age is alert and minimally cooperative. Behavior: Patient is pacing the hallway at times, laying in his bed, though does not appear agitated Speech: Patient was fairly concrete today. Mood/Affect: Aims that his mood is "ok" affect is congruent and constricted. Improving mildly Suicidality/Homicidality: Patient denies having any suicidal or homicidal ideation. Perceptions: No obvious response to internal stimuli. Though content/process: Thought process is increased, paucity of thought. More directable today, no paranoia or delusions Memory and concentration: Alert and oriented to person place and time. Judgment and insight: Poor, improving mildly ASSESSMENT: Schizophrenia Alcohol use disorder Legal problems Nonadherence to medication regimen PLAN: -Patient continues to meet criteria for inpatient psychiatric admission for symptom stabilization and safety. Patient has not signed adult voluntary form or medication consent. -Medications: -Continue Prolixin 10 mg BID + 5 mg at 1400hr for psychotic symptoms, plan will be to transition patient onto QUINONEZ likely tomorrow or sunday if patient is agreeable. - continue Divalproex 1000 mg nightly for mood stabilization/aggression - Continue sertraline 50 mg daily for mood - continue Trazodone 100 mg qhs insomnia -When necessary Ativan and Haldol for agitation/aggression. -NRT - nicotine patch -SW on board for discharge planning. Encouraged the patient to participate in milieu. did not defer with his civil attorney, currently awaiting court date scheduled for 03/28. patient is a [facility] hold, will need a QUINONEZ prior to discharge
[2024-03-27 09:08] VITALS: TEMP 97.1
--- NOTE | 2024-03-27 11:33 | P.PN ---
Progress Note - Text Progress Note Date: 03/27/24 Interval History: Patient was seen in the lounge, he was coloring. He was fairly concrete and a ttempts to cooperate with personal lines underwriter today during the interview. Patient remains on a security one-to-one sitter, also remains in the back hallway. Patient has been taking his medications. He was not reporting any side effects from the medications. he also claims that he has been showering daily. We spoke briefly about court being done tomorrow he was skeptical about it being done remotely. He also asked if it was a criminal court. He was a bit more polite today with personal lines underwriter, attempting to answer questions. According to staff patient did not sleep well last night. He continues to be fairly concrete, very poor insight and judgment, improving mildly. Denies any issues with his medications at this time no side effects. Denies any auditory or visual hallucinations. At this time patient denies any suicidal or homicidal ideations Mental Status Exam: General Appearance: Patient appears to be stated age is alert and minimally cooperative. Proving hygiene and grooming Behavior: Patient is sitting in the lounge, attempts to cooperate. Bizarre Speech: Patient was fairly concrete today. Mood/Affect: Aims that his mood is "fine" affect is congruent and constricted. Suicidality/Homicidality: Patient denies having any suicidal or homicidal ideation. Perceptions: No obvious response to internal stimuli. Though content/process: Thought process is concrete, paucity of thought. concrete. More directable today, less paranoia or delusions Memory and concentration: Alert and oriented to person place and time. Judgment and insight: Poor, improving mildly ASSESSMENT: Schizophrenia Alcohol use disorder Legal problems Nonadherence to medication regimen PLAN: -Patient continues to meet criteria for inpatient psychiatric admission for symptom stabilization and safety. Patient has not signed adult voluntary form or medication consent. -Medications: -Continue Prolixin 10 mg BID + 5 mg at 1400hr for psychotic symptoms, plan will be to transition patient onto QUINONEZ likely tomorrow once patient is on a court order - continue Divalproex 1000 mg nightly for mood stabilization/aggression - Continue sertraline 50 mg daily for mood -Increase trazodone 150 mg qhs insomnia -Melatonin 10 mg nightly for sleep -When necessary Ativan and Haldol for agitation/aggression. -NRT - nicotine patch -SW on board for discharge planning. Encouraged the patient to participate in milieu. did not defer with his deputy county attorney, currently awaiting court date scheduled for 03/28. patient is a long-term hold, will need a QUINONEZ prior to discharge. Likely discharge early next week back to long-term.
[2024-03-27] MEDS: MELATONIN 5 MG TABLET PO SCH (21:59)
[2024-03-27] MEDS: traZODone HCL 50 MG TAB PO SCH (21:59)
--- NOTE | 2024-03-28 11:54 | P.PN ---
Progress Note - Text Progress Note Date: 03/28/24 Interval History: Patient was seen in his room today staring at the window. He was fairly concr ete and attempts to cooperate with mortgage loan underwriter today during the interview. Patient asked questions about the hearing. He appeared to have somewhat limited understanding of the court order, mortgage loan underwriter explained more about it and answered questions. He is agreeable to remain on medications, we spoke about transitioning onto a long-acting injection which she is okay with. Patient remains on a security one-to-one sitter, also remains in the back hallway. Patient has been taking his medications. He was not reporting any side effects from the medications. he was attempting to answer questions. He is denying any depression or anxiety. He continues to be fairly concrete, very poor insight and judgment, improving mildly. Pulse control improving mildly. Denies any issues with his medications at this time no side effects. Denies any auditory or visual hallucinations. At this time patient denies any suicidal or homicidal ideations Mental Status Exam: General Appearance: Patient appears to be stated age is alert and more cooperative. improving hygiene and grooming Behavior: Patient is sitting in the lounge, attempts to cooperate. Bizarre, improving mildly, less impulsive Speech: Patient was fairly concrete today. Mood/Affect: Aims that his mood is "ok" affect is congruent and constricted. Suicidality/Homicidality: Patient denies having any suicidal or homicidal ideation. Perceptions: No obvious response to internal stimuli. Though content/process: Thought process is concrete, paucity of thought. concrete. More directable today, less paranoia or delusions Memory and concentration: Alert and oriented to person place and time. Judgment and insight: Chronically poor, improving mildly ASSESSMENT: Schizophrenia Alcohol use disorder Legal problems Nonadherence to medication regimen PLAN: -Patient continues to meet criteria for inpatient psychiatric admission for symptom stabilization and safety. Patient has not signed adult voluntary form or medication consent. -Medications: -Will give Prolixin D 50 mg IM today, next dose will be due in [id number] on 04/07. will slowly taper off Prolixin PO over the weekend, decreasing down to 10 mg BID for now. Patient is now on a a court order, Prolixin IM prn if he is refusing PO option. - continue Divalproex 1000 mg nightly for mood stabilization/aggression - Continue sertraline 50 mg daily for mood -Increase trazodone 200 mg qhs insomnia -Melatonin 10 mg nightly for sleep -When necessary Ativan and Haldol for agitation/aggression. -NRT - nicotine patch -SW on board for discharge planning. Encouraged the patient to participate in milieu. did not defer with his [place] attorney, had a court hearing on 03/28, resulted in a mental health treatment order. patient is a [facility] hold. Likely discharge early next week [facility] to [facility] if patient is stable over the weekend and titrated off of Prolixin p.o.
[2024-03-28] MEDS: fluPHENAZine DECANOATE 25 MG/ML 5ML MDV IM SCH (12:15)
[2024-03-28] MEDS: traZODone HCL 100 MG TAB PO SCH (21:33)
--- NOTE | 2024-03-29 15:05 | P.PN ---
Progress Note - Text Progress Note Date: 03/29/24 Dictation was produced using [employer] dictation software. Please excuse any grammatical, word or spelling errors. Interval history: Patient was seen and agreeable to speak with the automobile and property underwriter in his room for psychiatric follow-up. Security personnel was at the bedside. Pt dates that he is feeling fine today, reported that his mood is "fine." States that he slept well overnight and admitted to good appetite. He reported low depression and anxiety, denied any current suicidal, self-harm or homicidal thoughts or behavior, intention or plan. He denied any current auditory or visual hallucination, he has an intense look and kept eye contact. States that he has been taking his medication, could not recall taking an injection yesterday however reported that he has been taking all of his medication, he denied any current side effects, denied any muscle stiffness, rigidity, abnormal movement, or drooling. Remained to be on security one-to-one supervision. He continues to be fairly concrete, very poor insight and judgment, improving mildly. Seem to be slowly improving over his current hospitalization. No issues of aggression or agitation reported today so far. Mental status exam: General Appearance: Patient appears to be stated age is alert and more cooperative. improving hygiene and grooming Behavior: Patient is sitting in the lounge, attempts to cooperate. Bizarre, improving mildly, less impulsive Speech: Patient was fairly concrete today. Mood/Affect: Aims that his mood is "fine" affect is congruent and constricted. Suicidality/Homicidality: Patient denies having any suicidal or homicidal ideation. Perceptions: No obvious response to internal stimuli. He denied any current auditory or visual hallucination Though content/process: Thought process is concrete, paucity of thought. More directable, less paranoia or delusions Memory and concentration: Alert and oriented to person place and time. Judgment and insight: Chronically poor, improving mildly Impression: Schizophrenia Alcohol use disorder Legal problems Nonadherence to medication regimen Assessment/Plan: Continue with current diagnosis. Patient continues to meet criteria for inpatient psychiatric admission for symptom stabilization and safety. Patient will be maintained on current psychotropic medication regimen. He received Prolixin Decanoate 50 mg IM yesterday 03/28/2024, tolerating well. Oral Prolixin was decreased to 4 mg p.o. 3 times daily from 10 mg p.o. twice daily. Will continue to monitor for medication compliance and for any psychotropic medication side effects. Will continue to monitor ongoing response to treatment. Encouraged participation in milieu.
--- NOTE | 2024-03-30 15:02 | P.PN ---
Progress Note - Text Progress Note Date: 03/30/24 Dictation was produced using [employer] dictation software. Please excuse any grammatical, word or spelling errors. Interval history: Patient was seen in the hallway and was directable and agreeable to speak with the appeals writer for psychiatric follow-up. Patient was walking the hallway carrying his pillow and reported that he is doing so to exercise. He states that he is feeling "good" today, he states that he slept well last night. He denied any current depression or anxiety, denied any suicidal, self-harm or homicidal thoughts or behavior. He denied any auditory or visual hallucination, reported that he talked himself at times. 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 He admitted to good appetite and reported that he has been eating his meals. Claims that he is tending to his ADLs however he looks disheveled. He reported that he has been taking his medication, denied any current side effects, denied any muscle stiffness, rigidity, abnormal movement, or drooling. Remained to be on security one-to-one supervision. He continues to be fairly concrete, very poor insight and judgment, he continued to report or elaborate on the reasons that led to his current hospitalization however he seems to be slowly improving. No issues of aggression or agitation reported. Mental status exam: General Appearance: Patient appears to be stated age is alert and more cooperative. improving hygiene and grooming Behavior: Patient is sitting in the lounge, attempts to cooperate. Bizarre, improving mildly, less impulsive Speech: Patient was fairly concrete today. Mood/Affect: reported that his mood is "good" affect is congruent and constricted. Suicidality/Homicidality: Patient denies having any suicidal or homicidal ideation. Perceptions: No obvious response to internal stimuli. He denied any current auditory or visual hallucination Though content/process: Thought process is concrete, paucity of thought. More directable, less paranoia or delusions Memory and concentration: Alert and oriented to person place and time. Judgment and insight: Chronically poor, improving mildly Impression: Schizophrenia Alcohol use disorder Legal problems Nonadherence to medication regimen Assessment/Plan: Continue with current diagnosis. Patient continues to meet criteria for inpatient psychiatric admission for symptom stabilization and safety. Patient will be maintained on current psychotropic medication regimen. He received Prolixin Decanoate 50 mg IM yesterday 03/28/2024, tolerating well. Oral Prolixin was decreased to 4 mg p.o. 3 times daily from 10 mg p.o. twice daily, pt continue to improve, no changes today. Will continue to monitor for medication compliance and for any psychotropic medication side effects. Will continue to monitor ongoing response to treatment. Encouraged participation in milieu.
[2024-03-31 10:00] VITALS: BP 96/58; RESP 16
[2024-03-31 10:23] VITALS: PULSE 78
--- NOTE | 2024-03-31 10:29 | P.DS ---
Providers Date of admission: 03/11/24 17:52 Expected date of discharge: 03/31/24 Attending physician: Milo Gore MD Consults: 03/11/24 18:05 Consult Physician Routine Consulting Provider: Bola Schmidt Consult Reason/Comments: history and physical Do you want consulting provider notified?: Yes Primary care physician: Stated None - Discharge Diagnosis(es) (1) Schizophrenia Current Visit: Yes Status: Acute Priority: High (2) Alcohol use disorder Current Visit: Yes Status: Acute Priority: Medium (3) Legal problem Current Visit: Yes Status: Acute Priority: High (4) Non compliance w medication regimen Current Visit: Yes Status: Acute Priority: High Hospital Course: Admission HPI: Admission note was completed by casualty underwriter "Patient is a 38-year-old male, currently coming from half-way, he is single he has no kids he is unemployed. Patient presented to the hospital coming from the local half-way. Patient came on a petition is stated the patient has been acting bizarre and not taking care of his ADLs, acutely psychotic. Patient was admitted involuntarily to the mental health unit. He appeared to be disheveled in appearance, he was fairly irritable with casualty underwriter, focused on discharge. He had very poor insight poor judgment. Poor decision making. He states that he been off his medications for quite some time. Apparently stopped taking his medications about 2 weeks ago. He was responding to internal stimuli, acting bizarre in his room. He was fairly illogical in thought process. He states that he came to the hospital because of drinking too much. Claims that has been drinking "beer" however did not state how much or when. He is not agreeable to take medications at this time. Patient denies any suicidal or homicidal ideations intent or plan. At this time patient denies any auditory or visual hallucinations. Patient denies any flight of ideas racing thoughts and increased in goal directed behavior. Patient admits to using no recreational drugs except for alcohol as noted above Patient was fairly uncooperative, poor historian, gave limited further information on social history and past psychiatric history." Hospital course: Upon admission to the unit patient was admitted involuntarily on a petition and certificate and a second certificate was completed and faxed to the courts. Patient ended up having a court hearing for mental health treatment and receiving a mental health treatment order on 03/28. Patient was initially bizarre, aggressive, he was also violent towards another patient and staff members at times on the unit. With time and treatment he eventually improved significantly with regards to his psychosis and behaviors and also aggression. He patient was compliant with the medications and denied any side effects throughout hospital course. Patient was started on Prolixin increased to a dose of 25 mg total daily for psychosis/mood stabilization/aggression, due to history of noncompliance, he was transitioned onto Prolixin D 50 mg IM q. 10 days, dose was given on 03/28 next dose will be due on 04/07. Patient was also started on Depakote 1000 mg nightly for mood stabilization/aggression, Zoloft 50 mg daily for mood/anxiety, trazodone 200 mg nightly for insomnia/mood, melatonin 10 mg nightly for sleep. Patient was also seen by medical team for history and physical exam. Throughout the course of the hospitalization patient gradually improved with regards to mood, anxiety, psychosis, aggression, sleep and returned back to their baseline level of functioning. On the day of discharge patient denied any suicidal or homicidal ideations intent or plan denied any auditory or visual hallucinations. Patient endorsed wanting to live for their health and family. The patient denied any access to guns or weapons. Patient denied any paranoia and did not endorse any delusions. Patient does not have a significant history of substance abuse and was counseled on abstaining from all substances including alcohol and marijuana. . Patient was also counseled on the medications and need for regular compliance and was encouraged to follow-up with their outpatient appointment for mental health and also for primary care. Patient will be discharged back to the half-way today directly from the mental health unit. He will be following up at [facility]. Mental status exam: General Appearance: Patient appears to be tall, stated age is alert, pleasant, and cooperative. Patient is in no acute distress and has improved hygiene and grooming Behavior: Patient is calmly seated without any agitated behavior. Speech: Patient's speech is fluent and nonpressured. Mood/Affect: Patient reports their mood is "good", affect is congruent and improving Suicidality/Homicidality: Patient denies having any suicidal or homicidal ideation intent or plan. Perceptions: Patient denies any auditory or visual hallucinations. Though content/process: There is no evidence of any delusional thought content and thought process is linear and goal-directed. Memory and concentration: AOX3, grossly intact for the purposes of this session. Can spell "WORLD" backwards correctly. Judgment and insight: Chronically poor, however has improved with guarded prognosis Impression: Schizophrenia Alcohol use disorder Legal problem Noncompliance with medication regimen Plan: -Continue with discharge today as patient has improved and stabilized psychiatrically and is not currently an imminent threat to themself and/or others. -Continue medications: Prolixin D 50 mg IM, first dose was given on 03/28 next dose will be due on 04/07. Depakote 1000 mg nightly for mood stabilization/aggression, Zoloft 50 mg daily for mood/anxiety, trazodone 200 mg nightly for insomnia/mood, melatonin 10 mg nightly for sleep. -Patient was counseled on the need for medication compliance and appropriate follow-up at mental health and also primary care for medical issues. Patient verbalized understanding and agreed. -Social work to help coordinate patients discharge today and safe transfer back to half-way. also to ensure safe home environment that guns/weapons are either removed from the home or locked away. Social work also to arrange for patients follow up appointments with [facility] for psychiatric care along with follow up with primary care provider. -Patient counseled on abstaining from recreational drugs and marijuana and alcohol. Was informed/educated on the adverse effects on their physical and mental health. Patient verbally agreed and understood. -Patient was instructed to return to the hospital or seek immediate medical care if their psychiatric or medical symptoms do worsen or reoccur. Allergies Allergy/AdvReac Type Severity Reaction Status Date / Time No Known Allergies Allergy Verified 03/11/24 17:11 Laboratory Results Urine Color Yellow 03/11/24 11:36 Urine Appearance Clear (Clear) 03/11/24 11:36 Urine pH 5.5 (5.0-8.0) 03/11/24 11:36 Ur Specific [place] 1.033 (1.001-1.035) 03/11/24 11:36 Urine Protein 1+ (Negative) H 03/11/24 11:36 Urine Glucose (UA) Negative (Negative) 03/11/24 11:36 Urine Ketones 3+ (Negative) H 03/11/24 11:36 Urine Blood Negative (Negative) 03/11/24 11:36 Urine Nitrite Negative (Negative) 03/11/24 11:36 Urine Bilirubin 1+ (Negative) H 03/11/24 11:36 Urine Urobilinogen 3.0 mg/dL (<2.0) 03/11/24 11:36 Ur Leukocyte Esterase Negative (Negative) 03/11/24 11:36 Urine WBC 1 /hpf (0-5) 03/11/24 11:36 Calcium Oxalate Crystal Rare /hpf (None) H 03/11/24 11:36 Urine Mucus Many /hpf (None) H 03/11/24 11:36 Urine Opiates Screen Not Detected (NotDetected) 03/11/24 11:36 Ur Oxycodone Screen Not Detected (NotDetected) 03/11/24 11:36 Urine Methadone Screen Not Detected (NotDetected) 03/11/24 11:36 Ur Barbiturates Screen Not Detected (NotDetected) 03/11/24 11:36 U Tricyclic Antidepress Not Detected (NotDetected) 03/11/24 11:36 Ur Phencyclidine Scrn Not Detected (NotDetected) 03/11/24 11:36 Ur Amphetamines Screen Not Detected (NotDetected) 03/11/24 11:36 U Methamphetamines Scrn Not Detected (NotDetected) 03/11/24 11:36 U Benzodiazepines Scrn Not Detected (NotDetected) 03/11/24 11:36 Urine Cocaine Screen Not Detected (NotDetected) 03/11/24 11:36 U Marijuana (THC) Screen Not Detected (NotDetected) 03/11/24 11:36 SARS-CoV-2 (PCR) Not Detected (Not Detectd) 03/11/24 11:36 Vital Signs Temp 97.1 F L 03/31/24 09:59 Pulse 56 L 03/31/24 09:59 Resp 16 03/31/24 09:59 BP 96/58 03/31/24 09:59 Pulse Ox 99 03/31/24 09:59 FiO2 Intake & Output 03/30/24 03/31/24 03/31/24 18:59 06:59 18:59 Intake Total 2364 500 Balance 2364 500 Weight 86.5 kg Intake: Oral 2364 500 Patient Condition at Discharge: Stable Plan - Discharge Summary New Discharge Prescriptions: New Divalproex ER [Depakote ER] 1,000 mg PO HS 30 Days #60 tab Sertraline [Zoloft] 50 mg PO DAILY 30 Days #30 tab Benztropine Mesylate [Cogentin] 1 mg PO BID 30 Days #60 tab Nicotine 21Mg/24Hr Patch [Habitrol] 1 patch TRANSDERM DAILY 14 Days #14 patch Ibuprofen [Motrin] 600 mg PO Q6HR PRN tab PRN Reason: Moderate Pain (Scale 4 To 6) fluPHENAZine decanoate [Prolixin Decanoate] 50 mg IM Q10D #1 ml Discontinued Sertraline [Zoloft] 50 mg PO DAILY No Action risperiDONE [RisperDAL] 4 mg PO HS Discharge Medication List risperiDONE [RisperDAL] 4 mg PO HS 03/11/24 [History] Benztropine Mesylate [Cogentin] 1 mg PO BID 30 Days #60 tab 03/31/24 [Rx] Divalproex ER [Depakote ER] 1,000 mg PO HS 30 Days #60 tab 03/31/24 [Rx] Ibuprofen [Motrin] 600 mg PO Q6HR PRN tab 03/31/24 [Rx] Nicotine 21Mg/24Hr Patch [Habitrol] 1 patch TRANSDERM DAILY 14 Days #14 patch 03/31/24 [Rx] Sertraline [Zoloft] 50 mg PO DAILY 30 Days #30 tab 03/31/24 [Rx] fluPHENAZine decanoate [Prolixin Decanoate] 50 mg IM Q10D #1 ml 03/31/24 [Rx] Patient Instructions/Handouts: How to Stop Smoking (DC), Schizophrenia (DC) Discharge Disposition: DC/TRANSFER COURT/LAW
== END 2024-03-31 14:32 | DRG 750 ==
LOC: EC 10:53 → 3MHU 17:52 → UNDOADMIN 17:52 → 3MHU 03-13 21:47
PROVIDERS: ADMIT Psychiatry & Neurology Psychiatry; ATTEND Psychiatry & Neurology Psychiatry
DX: F20.9 Schizophrenia, unspecified (principal); Z91.148 Patient's other noncompliance with medication regimen for other reason; F10.10 Alcohol abuse, uncomplicated; F41.9 Anxiety disorder, unspecified; G47.00 Insomnia, unspecified; T50.916A Underdosing of multiple unspecified drugs, medicaments and biological substances, initial encounter; Z78.1 Physical restraint status; Z56.0 Unemployment, unspecified; Z87.891 Personal history of nicotine dependence; Z79.899 Other long term (current) drug therapy
CPT/HCPCS: 80306; 81001; 87635; 99285